=== PATIENT | male | born 1940 | race Caucasian/White ===

== ENCOUNTER 2017-11-07 11:51 | Day surgery (SDC) | payer MEDICARE, OTHER, SELFPAY ==
[2017-11-07] VITALS (16 sets, daily range): BP systolic 76–110; BP diastolic 45–65; PULSE 44–53; RESP 8–16; TEMP 36.1–36.3; O2SAT 95–100; BMI 23.4
--- NOTE | 2017-11-07 | PATH_ITS ---
[facility] Accession Number: [id number] . 01 Material submitted: . COLON POLYP AT 16 CM . 02 Diagnosis: Colon Polyp at 16 cm: Hyperplastic polyp. MRV/11/08/2017 . 02 Electronically signed: . Pedro Rubalcava MD, PhD, Pathologist NPI- [id number] . 01 Gross description: . Received one formalin-filled container labeled with the patient's name and labeled colon polyp at 16 cm. The specimen consists of three 0.2 to 0.4 cm portions of tissue. Entirely submitted in one cassette. ([facility] [place]:[id number]) /[facility] . 02 Pathologist provided ICD-10: K63.5 . 02 CPT . 964105 Performed at: [address] [facility] [address] [id number] MD Bora Perry MD Phone: [phone] Performed at: 02 [facility] [place] [address] [place], [place] [id number] MD Gilberto Savlador MD Phone: [phone]
--- NOTE | 2017-11-07 12:08 | PM.PREOP ---
Pre-operative Note Interval Note Pre-op Check: Yes History & Physical Reviewed by Physician and Yes Exam Performed Changes: No H&P completed within 30 days and has changed as indicated here:: Lungs clear CV reg Abdomen Soft Extrems WWP ASA Class (for procedural sedation): II
--- NOTE | 2017-11-07 12:09 | PM.OP.ENDO ---
Operative Date/Time/Diagnoses Date of procedure: 11/07/17 Time of procedure: 13:25 Pre-op diagnosis: History of Colon polyps Post-op diagnosis: other (Diminutive colon polyp at 15-16 cm from anal verge removed with cold forceps) Procedure Notes SCOAP/Timeout: yes Procedure in detail: After informed consent the patient was taken to the endoscopy suite he received Versed and fentanyl total of 6 mg of Versed a 200 mcg of fentanyl over the course of the entire procedure. After adequate sedation was achieved digital rectal exam showed no evidence of mass or lesion. Well lubricated endoscope was advanced to the terminal ileum which was confirmed by the ileocecal valve and necrosis foot of the cecum. Total sedation time was 32 min. Total withdrawal time was 12 min a diminutive polyp was seen at 16 cm and was removed with 2 bites of the cold forceps and sent to pathology retroflexion showed no evidence of rectal lesion. The prep was excellent with a 95% of the colon visualized. There were no evidence of complications and patient was brought to the postoperative care unit in stable condition tolerating the procedure quite well. Scope withdrawal time: 12 minutes Sedation minutes: 32 Findings: polyp Specimen(s): other (cold forceps polypectomy) Complications: none Recommendations: Colonscopy in 5 years Follow up: as needed Disposition: PACU
[2017-11-07] MEDS: SODIUM CHLORIDE 0.9% 1,000 ML 200 ML IV ×2 (12:29→13:59)
[2017-11-07] MEDS: GLUCAGON,HUMAN RECOMBINANT 1 MG/ML VIAL IV (13:03)
[2017-11-07] MEDS: MIDAZOLAM 5 MG/5 ML VIAL IV (13:24)
[2017-11-07] MEDS: fentaNYL 250 MCG/5 ML INJ IV (13:24)
--- NOTE | 2017-11-07 13:56 | SUR.PHASEI ---
Awake now. Pupils are 1mm b/l and the tendency to fall intoi a somnolent state occurs quickly.
--- NOTE | 2017-11-07 14:06 | SUR.PHASEI ---
Spoke with about delay in bringing out to the OPD.
--- NOTE | 2017-11-07 14:09 | SUR.PHASEI ---
Eye finally open spontaneously however still easily falls into somnolent state.
--- NOTE | 2017-11-07 14:11 | SUR.PHASEI ---
Although BP is low versus preop 110/65, with heart history and as most people often have slightly higher preprocedure BPs than usual, no longer have fluids open although still running. Patient unable to recall usual BP. Pupiuls now 2mm B/L.
--- NOTE | 2017-11-07 14:46 | SUR.PHASEII ---
Spoke with Dr Richter who asks that more IVF be administered and if patient still assymptomatic he can be discharged. Total IVF to this point 1350. Also has rec'd po fluids.
== END 2017-11-07 15:09 | disposition home or self-care (01) ==
PROVIDERS: PCP Family Medicine; Visit Provider Surgery
PROC: 0DJD8ZZ Inspection of Lower Intestinal Tract, Via Natural or Artificial Opening Endoscopic (ICD-10-PCS; CPT 45378; principal; 2017-11-07 13:00)
DX: Z86.010 Personal history of colon polyps (principal); Z87.891 Personal history of nicotine dependence; K63.5 Polyp of colon
CPT/HCPCS: 45380; 88305; 99152; 99153; J1610; J2250; J3010

== ENCOUNTER → 2020-07-04 08:39 | Outpatient (CLI) | payer MEDICARE, OTHER, SELFPAY ==
--- NOTE | 2020-07-04 09:02 | DI.CT.S_ITS ---
PROCEDURE: CT HEAD/BRAIN WO CON INDICATIONS: Other amnesia TECHNIQUE: Noncontrast 4.5 mm thick angled axial sections acquired from the foramen magnum to the vertex, with coronal and sagittal reformats. For radiation dose reduction, the following was used: automated exposure control, adjustment of mA and/or kV according to patient size. COMPARISON: None. FINDINGS: Image quality: Excellent. CSF spaces: Basal cisterns are patent. No extra-axial fluid collections. The ventricles are symmetric in size and shape. Brain: No intracranial bleeds or masses. There is cerebral volume loss for age, with resultant ventricular and sulcal prominence. There are periventricular and deep white matter chronic small vessel ischemic changes. There is intracranial internal carotid artery atherosclerosis. Skull and face: Calvarium and visualized facial bones appear intact, without suspicious lesions. Sinuses: Visualized sinuses and mastoids are clear. IMPRESSION: Study within normal limits for age, with note made of brain parenchymal volume loss and chronic small vessel ischemic change. Dictated by: Lino Benson M.D. on 07/04/2020 at 9:16 Approved by: Lino Benson M.D. on 07/04/2020 at 9:17
== END ==
PROVIDERS: PCP Family Medicine; Referring Provider Family Medicine; Visit Provider Family Medicine
DX: R41.3 Other amnesia (principal); R41.89 Other symptoms and signs involving cognitive functions and awareness
CPT/HCPCS: 70450

== ENCOUNTER 2020-11-29 17:06 | Emergency (ER) | payer MEDICARE, OTHER, SELFPAY ==
[2020-11-29] VITALS (7 sets, daily range): BP systolic 124–149; BP diastolic 64–83; PULSE 48–56; RESP 17–25; TEMP 36.9; O2SAT 96–98; BMI 24.0
--- NOTE | 2020-11-29 17:20 | DI.RAD.S_ITS ---
PROCEDURE: XR CHEST 1V INDICATIONS: Chest pain TECHNIQUE: One view of the chest was acquired. COMPARISON: None. FINDINGS: Surgical changes and devices: Left pacemaker with right ventricular AICD lead. Lungs and pleura: Prominent lung volumes. Suspect emphysematous change. Lungs appear clear. No pleural effusions or pneumothorax. Mediastinum: Mediastinal contours appear normal. Heart size is prominent. Bones and chest wall: No suspicious bony lesions. Overlying soft tissues appear unremarkable. IMPRESSION: No acute cardiopulmonary abnormality. Suspect emphysematous change. Dictated by: Sanchez Reagan M.D. on 11/29/2020 at 17:06 Approved by: Sanchez Reagan M.D. on 11/29/2020 at 17:07
--- NOTE | 2020-11-29 18:09 | ED.RECABL ---
HPI - Recheck/Abnormal Lab/Rx General Chief Complaint: Recheck/Abnormal Lab/Rx Stated Complaint: defib problem was not shocked. Time Seen by Provider: 11/29/20 17:19 Source: patient Mode of arrival: Ambulatory Limitations: no limitations History of Present Illness HPI narrative: Patient is a 80-year-old male with history of coronary artery disease presenting with defibrillator problem. [facility]. 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 He states early this morning there was a beeping noise from his defibrillator. He knew something was wrong and came to the emergency department this evening. He has already been interrogated, he has a [employer] device. My partner Dr. Hernandez spoke with [employer]. Stating he has a lead fracture. Could have inappropriate shocks recommend magnet over the battery and beclosely monitored. Patient is only here because he is annoyed with the beeping. He has not had any inappropriate shocks. He has no chest pain or shortness of breath. He has not had any fever. At this time completely asymptomatic Related Data Home Medications Medication Instructions Recorded Confirmed CA PANTOTHENATE/FOLIC ACID/VIT 1 tab PO QDAY #0 08/08/12 11/07/17 (MULTIVITAMIN) aspirin 81 mg tablet,delayed 81 mg PO QDAY #0 08/08/12 11/07/17 release cyclobenzaprine 10 mg tablet 10 mg PO HS #0 08/08/12 11/07/17 ezetimibe 10 mg tablet (Zetia) 10 mg PO QDAY #0 08/08/12 11/07/17 lisinopril 40 mg tablet (Zestril) 40 mg PO QDAY #0 08/08/12 11/07/17 metoprolol succinate 200 mg 200 mg PO QDAY #0 08/08/12 11/07/17 tablet,extended release 24 hr (Toprol XL) simvastatin 40 mg tablet 40 mg PO HS #0 08/08/12 11/07/17 Allergies Allergy/AdvReac Type Severity Reaction Status Date / Time No Known Drug Allergies Allergy Verified 11/07/17 12:10 Review of Systems Review of Systems Narrative: GENERAL: Denies chills, fatigue, malaise, fever, sweats, travel HEENT: Denies sinus pain, ear pain, sore throat, difficulty swallowing, neck pain RESPIRATORY: Denies dyspnea, cough, wheezing, hemoptysis, sputum. CARDIOVASCULAR: Denies chest pain, palpitations, orthopnea, edema GASTROINTESTINAL: Denies nausea, vomiting, abdominal pain, diarrhea, constipation, melena. : Denies dysuria, frequency, incontinence, hematuria, urinary retention, flank pain. MUSCULOSKELETAL: Denies weakness, joint pain, or bony pain SKIN: No rash, no erythema, no pruritus NEUROLOGIC: Denies weakness, dizziness, headache, numbness, change in speech, confusion PSYCHIATRIC: No concerning psychosocial issues. 12 point review of systems is negative except for those stated above and HPI Patient History Medical History (Updated 11/29/20 @ 20:16 by Swetha Potter DO) History of colonic polyps Social History household members: spouse Smoking Status: Current some day smoker Smoking Status: Current some day smoker tobacco type: cigarettes alcohol intake frequency: 0-2 drinks per day Substance Use Type: does not use Exam Initial Vital Signs Initial Vital Signs: Vital Signs Temperature 98.5 F 11/29/20 17:32 Pulse Rate 56 L 11/29/20 17:32 Respiratory Rate 18 11/29/20 17:32 Blood Pressure 149/69 H 11/29/20 17:32 Pulse Oximetry 96 11/29/20 17:32 GENERAL: Alert well-appearing 72-year-old maleand in no acute distress. HEENT: Head atraumatic,EOMI, pupils reactive, face symmetric, moist mucous membranes CARDIOVASCULAR: Regular rate and rhythm without murmurs, rubs or gallops. RESPIRATORY: Breath sounds equal bilaterally, no wheezes rales or rhonchi. ABDOMEN: Soft, nontender. Normoactive bowel sounds all 4 quadrants. No guarding or rebound. EXTREMITIES: Normal range of motion, no clubbing or edema. Neurovascularly intact NEUROLOGICAL: Alert and oriented x4.Normal gait and speech. SKIN: Warm, dry, no laceration, no petechiae, no rashes or lesions. Course Orders Ordered: ED Orders 11/29/20 18:11 Complete Blood Count AUTO DIFF Stat Comprehensive Metabolic Panel Stat Lipase Stat Magnesium Stat Troponin & CK Cardiac Panel Stat 11/29/20 18:21 XR chest 1V Stat Vital Signs Vital signs: Vital Signs - 8 hr 11/29/20 19:00 11/29/20 19:30 11/29/20 20:00 Pulse Rate 48 L 50 L 49 L Respiratory Rate 22 20 18 Blood Pressure 124/83 Pulse Oximetry 97 98 97 11/29/20 20:01 Pulse Rate 52 L Respiratory Rate 25 H Blood Pressure 140/64 Pulse Oximetry 97 MDM - Recheck/Abnormal Lab/Rx Lab Data Result diagrams: 11/29/20 18:11 11/29/20 18:11 Labs: Lab Results 11/29/20 11/29/20 Range/Units 18:11 18:11 WBC 7.4 (4.5-11.0) X10^3/uL RBC 4.47 L (4.5-5.9) X10^6/uL Hgb 14.7 (13.5-17.5) g/dL Hct 43.2 (41-53) % MCV 96.7 (80-100) fL MCH 33.0 (26-34) PG MCHC 34.1 (30-36) % RDW 13.4 (11.6-14.8) % Plt Count 184 (150-400) X10^3/uL Neut % (Auto) 60.3 (50-75) % Lymph % (Auto) 27.2 (25-40) % Amelia % (Auto) 9.5 (3-14) % Eos % (Auto) 1.8 L (2-4) % Baso % (Auto) 1.2 (0-2) % Neut # (Auto) 4500 (1492-6625) /uL Lymph # (Auto) 2000 (5361-3284) /uL Amelia # (Auto) 700 (0-900) /uL Eos # (Auto) 100 (0-450) /uL Baso # (Auto) 100 (0-100) /uL Sodium 131 L (137-145) mmol/L Potassium 4.3 (3.4-5.1) mmol/L Chloride 100 (98-107) mmol/L Carbon Dioxide 27 (22-32) mmol/L BUN 9 (9-20) mg/dL Creatinine 0.73 (0.66-1.25) mg/dL Estimated GFR > 60.0 (>60) mL/min BUN/Creatinine Ratio 12.3 (6-22) Glucose 81 (80-110) mg/dL Calcium 8.6 (8.4-10.2) mg/dL Magnesium 2.0 (1.6-2.3) mg/dL Total Bilirubin 0.5 (0.2-1.3) mg/dL AST 33 (17-59) IU/L ALT 13 (<50) IU/L Alkaline Phosphatase 53 (38-126) U/L Total Creatine Kinase 72 (55-170) U/L CK-MB (CK-2) TNP CK-MB (CK-2) Rel Index TNP Troponin I < 0.012 (0.01-0.034) ng/mL Total Protein 6.3 (6.3-8.2) g/dL Albumin 4.0 (3.5-5.0) g/dL Globulin 2.3 (1.7-4.1) g/dL Albumin/Globulin Ratio 1.7 (1.0-2.8) Lipase 156 (23-300) U/L MDM Narrative Medical decision making narrative: 730pm- Dr. Gonzales, at this time defibrillator was placed as prevention for nonischemic cardiomyopathy. He has an urgent but not emergent need to have a lead fracture fixed. States that his team will follow-up with him on Tuesday. Recommends talking to bilingual inside sales representative about stopping the beeping noise. He is at risk for inappropriate discharge of the defibrillator. There is no evidence of needing a generator change all or that it is reving up and not firing or discharging. Hans Medabhijeet bilingual inside sales representative is quite aware of the situation. He agrees to meet patient in the emergency department tomorrow after 10:00 a.m.. We are to contact him when the patient arrives and he will come here to turn off the beeping noise. He cannot and will not fix the lead fracture There is also significant bed shortage secondary to pandemic. Discharge Plan Departure Patient Disposition: Home Clinical Impression: Implanted defibrillator electrode lead fracture Qualifiers: Encounter type: initial encounter Qualified Code(s): T82.190A - Other mechanical complication of cardiac electrode, initial encounter Instructions: DI for Automatic Cardioverter/Defibrillator Implantation Activity Restrictions/Additional Instructions: You are at risk of being shocked Your defibrillator does need to be placed urgently but not emergently. I have spoken with Cardiology, they will be in touch with you 1st thing on Tuesday. RETURN TO EMERGENCY DEPARTMENT AROUND 10:00 A.M. SO THAT THE BEEPING NOISE CAN BE TURNED OFF. It will not be permanently fixed tomorrow, but the beeping will be stopped. If he should experience any shocking, chest pain, dizziness, palpitations return to emergency department immediately Follow-up with cardiology in every it next week. You should hear from them on Tuesday Prescriptions: No Action aspirin 81 MG tablet,delayed release (DR/EC) 81 mg PO QDAY Qty: 0 RF: 0 cyclobenzaprine 10 MG tablet 10 mg PO HS Qty: 0 RF: 0 lisinopril [Zestril] 40 MG tablet 40 mg PO QDAY Qty: 0 RF: 0 CA PANTOTHENATE/FOLIC ACID/VIT (MULTIVITAMIN) 1 tab PO QDAY Qty: 0 RF: 0 metoprolol succinate [Toprol XL] 200 MG tablet extended release 24 hr 200 mg PO QDAY Qty: 0 RF: 0 simvastatin 40 MG tablet 40 mg PO HS Qty: 0 RF: 0 ezetimibe [Zetia] 10 MG tablet 10 mg PO QDAY Qty: 0 RF: 0 Referrals: Mily Padilla DO [Primary Care Provider] -
--- NOTE | 2020-11-29 18:21 | DI.RAD.S_ITS ---
PROCEDURE: XR CHEST 1V INDICATIONS: ? lead fracture remove all leads. TECHNIQUE: One view of the chest was acquired. COMPARISON: [facility], CR, XR CHEST 1V, 11/29/2020, 17:27. FINDINGS: Surgical changes and devices: Cardiac AICD Lungs and pleura: Scattered subsegmental scarring and/or atelectasis. No acute consolidation. No pleural effusions or pneumothorax. Mediastinum: Mediastinal contours appear normal. Heart size is normal. Bones and chest wall: No suspicious bony lesions. Overlying soft tissues appear unremarkable. IMPRESSION: No acute disease. Dictated by: Rachid Marti M.D. on 11/29/2020 at 18:46 Approved by: Rachid Marti M.D. on 11/29/2020 at 18:47
--- NOTE | 2020-11-29 18:25 | PC.NURSE ---
Per [employer], this pt's device should be turned off to prevent malfunction and inappropriate shock due to fractured lead. Magnet placed on pacemaker. Pacer spikes no longer showing on monitor. This RN has heard the pacer alarm three times prior to being turned off. Pt remains PWD, NAD, no pain, SOB, or complaints.
[2020-11-29 18:33] LABS: Alanine Aminotransferase 13 IU/L (<50); Albumin Globulin Ratio 1.7 (1.0-2.8); Alkaline Phosphatase 53 U/L (38-126); Aspartate Aminotransferase 33 IU/L (17-59); BUN Creatinine Ratio 12.3 (6-22); Bilirubin Total 0.5 mg/dL (0.2-1.3); Blood Urea Nitrogen 9 mg/dL (9-20); Calcium 8.6 mg/dL (8.4-10.2); Carbon Dioxide 27 mmol/L (22-32); Chloride 100 mmol/L (98-107); Creatine Kinase 72 U/L (55-170); Estimated Glomerular Filt Rate > 60.0 mL/min (>60); Globulin 2.3 g/dL (1.7-4.1); Glucose 81 mg/dL (80-110); HEMOLYSIS 25 (0-50); Lipase 156 U/L (23-300); Potassium 4.3 mmol/L (3.4-5.1); Sodium 131 mmol/L (137-145); Total Protein 6.3 g/dL (6.3-8.2)
[2020-11-29 18:36] LABS: Add Manual Diff / Slide Review NO; Basophils Absolute Auto 100 /uL (0-100); Basophils Percent Auto 1.2 % (0-2); Eosinophils Absolute Auto 100 /uL (0-450); Eosinophils Percent Auto 1.8 % (2-4); Hematocrit 43.2 % (41-53); Hemoglobin 14.7 g/dL (13.5-17.5); Lymphocytes Absolute Auto 2000 /uL (1100-4500); Lymphocytes Percent Auto 27.2 % (25-40); Mean Corpuscular HGB Conc 34.1 % (30-36); Mean Corpuscular Volume 96.7 fL (80-100); Monocytes Absolute Auto 700 /uL (0-900); Monocytes Percent Auto 9.5 % (3-14); Neutrophils Absolute Auto 4500 /uL (1500-7000); Neutrophils Percent Auto 60.3 % (50-75); Platelet Count 184 X10^3/uL (150-400); Red Blood Cell Count 4.47 X10^6/uL (4.5-5.9); Red Cell Distribution Width 13.4 % (11.6-14.8); White Blood Cell Count 7.4 X10^3/uL (4.5-11.0)
[2020-11-29 18:43] LABS: Troponin I < 0.012 ng/mL (0.01-0.034)
== END 2020-11-29 20:33 | disposition home or self-care (01) ==
PROVIDERS: Emergency Medicine; Emergency Provider Emergency Medicine; PCP Family Medicine
DX: T82.190A Other mechanical complication of cardiac electrode, initial encounter (principal)
CPT/HCPCS: 36415; 71045; 80053; 82550; 83690; 83735; 84484; 85025; 93005; 99283; 99284

== ENCOUNTER 2020-11-30 09:32 | Emergency (ER) | payer MEDICARE, OTHER, SELFPAY ==
[2020-11-30 09:35] VITALS: BP 147/72; PULSE 55; RESP 16; TEMP 36.9; O2SAT 99
--- NOTE | 2020-11-30 09:45 | ED.RECABL ---
HPI - Recheck/Abnormal Lab/Rx General Chief Complaint: Recheck/Abnormal Lab/Rx Stated Complaint: Returning for Defib assistance Time Seen by Provider: 11/30/20 09:38 Source: patient Mode of arrival: Ambulatory Limitations: no limitations History of Present Illness HPI narrative: Patient is a 80-year-old male. Was here in the emergency department yesterday after his defibrillator was beeping. It was determined that he did have a fractured wire which was causing the issue. He was otherwise asymptomatic. The night provider last evening was able to talk with the device rep and also the patient's greenskeeper supervisor. Was determined that the patient could be discharged home and will follow-up as an outpatient. It was determined that the patient would return to the emergency department today an order for the device rep to come to the emergency department in order to change the modality of the device that the beeping will stop. Since his discharge from the hospital the patient has had no symptoms except for the beeping of the device. Related Data Home Medications Medication Instructions Recorded Confirmed CA PANTOTHENATE/FOLIC ACID/VIT 1 tab PO QDAY #0 08/08/12 11/07/17 (MULTIVITAMIN) aspirin 81 mg tablet,delayed 81 mg PO QDAY #0 08/08/12 11/07/17 release cyclobenzaprine 10 mg tablet 10 mg PO HS #0 08/08/12 11/07/17 ezetimibe 10 mg tablet (Zetia) 10 mg PO QDAY #0 08/08/12 11/07/17 lisinopril 40 mg tablet (Zestril) 40 mg PO QDAY #0 08/08/12 11/07/17 metoprolol succinate 200 mg 200 mg PO QDAY #0 08/08/12 11/07/17 tablet,extended release 24 hr (Toprol XL) simvastatin 40 mg tablet 40 mg PO HS #0 08/08/12 11/07/17 Allergies Allergy/AdvReac Type Severity Reaction Status Date / Time No Known Drug Allergies Allergy Verified 11/30/20 09:43 Review of Systems Cardiovascular Comments: Denies chest pain, denies any inappropriate shocks Respiratory Comments: No shortness of breath Hematologic/Lymphatic On Anticoagulants: No Patient History Medical History (Updated 11/30/20 @ 12:11 by Cody Hernandez DO) History of colonic polyps Social History household members: spouse Smoking Status: Current some day smoker Smoking Status: Current some day smoker tobacco type: cigarettes alcohol intake frequency: 0-2 drinks per day Substance Use Type: does not use Exam Initial Vital Signs Initial Vital Signs: Vital Signs Temperature 98.4 F 11/30/20 09:35 Pulse Rate 55 L 11/30/20 09:35 Respiratory Rate 16 11/30/20 09:35 Blood Pressure 147/72 H 11/30/20 09:35 Pulse Oximetry 99 11/30/20 09:35 Const General: cooperative HENMT Head: normal to inspection and normocephalic Eyes General: appearance normal, both eyes and all related structures Resp Effort & Inspection: normal respiratory effort Cardio Rate: bradycardic Rhythm: abnormal rhythm Skin General: no rashes or lesions noted Neuro General: patient alert, patient awake and moves all extremities Extrem General: normal to inspection and capillary refill normal Psych Appearance: grossly normal and well kempt Course Vital Signs Vital signs: Vital Signs - 8 hr 11/30/20 09:35 11/30/20 11:23 Temperature 98.4 F Pulse Rate 55 L 51 L Respiratory Rate 16 51 H Blood Pressure 147/72 H 120/62 Pulse Oximetry 99 97 MDM - Recheck/Abnormal Lab/Rx MDM Narrative Medical decision making narrative: Patient is currently not having any symptoms except hearing his device beeping. The [employer] rep came into the emergency department unchanged the device setting so that it would no longer be. He was instructed to decrease his activity today as the chances of an inappropriate shock are potentially high given the nature of the issue with his device. His civil engineering intern was informed of the issue last evening and will follow-up with the patient sometime this week. Patient was given return precautions. Discharge Plan Departure Patient Disposition: Home Clinical Impression: Implantable cardioverter-defibrillator lead failure Activity Restrictions/Additional Instructions: Your device was adjusted today so that it should stop beeping. It is important that tomorrow you contact your civil engineering intern as you will need to get in to see him/her this week to have this issue fixed. There is a potential that you can receive an inappropriate shock based on the nature of the issue that you are having with the device. If this happens please return to the emergency department. Is recommended that you decrease your activity today. Return to the emergency department for any new or worsening symptoms Prescriptions: No Action aspirin 81 MG tablet,delayed release (DR/EC) 81 mg PO QDAY Qty: 0 RF: 0 cyclobenzaprine 10 MG tablet 10 mg PO HS Qty: 0 RF: 0 lisinopril [Zestril] 40 MG tablet 40 mg PO QDAY Qty: 0 RF: 0 CA PANTOTHENATE/FOLIC ACID/VIT (MULTIVITAMIN) 1 tab PO QDAY Qty: 0 RF: 0 metoprolol succinate [Toprol XL] 200 MG tablet extended release 24 hr 200 mg PO QDAY Qty: 0 RF: 0 simvastatin 40 MG tablet 40 mg PO HS Qty: 0 RF: 0 ezetimibe [Zetia] 10 MG tablet 10 mg PO QDAY Qty: 0 RF: 0 Referrals: Mily Padilla DO [Primary Care Provider] -
[2020-11-30 11:23] VITALS: BP 120/62; PULSE 51; RESP 51; O2SAT 97
== END 2020-11-30 12:18 | disposition home or self-care (01) ==
PROVIDERS: Emergency Provider Emergency Medicine; PCP Family Medicine
DX: T82.110A Breakdown (mechanical) of cardiac electrode, initial encounter (principal)
CPT/HCPCS: 99281

== ENCOUNTER → 2021-05-22 10:33 | Outpatient (CLI) | payer MEDICARE, OTHER, SELFPAY ==
[2021-05-22 12:05] LABS: BUN Creatinine Ratio 14.1 (6-22); Blood Urea Nitrogen 12 mg/dL (9-20); Calcium 8.7 mg/dL (8.4-10.2); Carbon Dioxide 30 mmol/L (22-32); Chloride 103 mmol/L (98-107); Estimated Glomerular Filt Rate > 60.0 mL/min (>60); Glucose 104 mg/dL (80-110); HEMOLYSIS 24 (0-50); Potassium 4.3 mmol/L (3.4-5.1); Sodium 139 mmol/L (137-145)
== END ==
PROVIDERS: PCP Family Medicine; Referring Provider Family Medicine; Visit Provider Family Medicine
DX: R19.7 Diarrhea, unspecified (principal)
CPT/HCPCS: 36415; 80048

== ENCOUNTER → 2021-05-28 09:00 | Outpatient (CLI) | payer MEDICARE, OTHER, SELFPAY ==
--- NOTE | 2021-05-28 | DI.CT.S_ITS ---
PROCEDURE: CT CHEST ABD PEL W CON INDICATIONS: loss of weight/chronic cough TECHNIQUE: After the administration of oral and intravenous contrast, axial sections acquired from the supraclavicular neck to the pubic symphysis. Coronal and sagittal reformats were performed. For radiation dose reduction, the following was used: automated exposure control, adjustment of mA and/or kV according to patient size. COMPARISON: None. FINDINGS: Image quality: Excellent. CHEST: Lower Neck: No enlarged lymph nodes. Thyroid: Within normal limits. Axillae: No enlarged lymph nodes. Chest Wall: Left-sided cardiac pacemaker is noted. Lungs and Airways: Severe centrilobular emphysema and paraseptal emphysema is present bilaterally with an apical predominance. No acute airspace opacities. No pulmonary nodules. No pleural effusion or pneumothorax. Pleura: No pneumothorax or pleural effusions. Heart: Heart size is normal. No pericardial effusion. Thoracic Vessels: The aorta and pulmonary arteries demonstrate normal size. Scattered atheromatous calcifications are present within the aortic arch. Mediastinum and Bernice: No enlarged lymph nodes. Esophagus: No wall thickening. No hiatal hernia. ABDOMEN: Liver: Low-density cysts are present within the liver. Gallbladder: Unremarkable. Biliary ducts: Unremarkable. Pancreas: Unremarkable. Spleen: Unremarkable. Adrenal Glands: Unremarkable. Kidneys and Ureters: There is mild atrophy of the right kidney. A left subcortical cystic lesion is present. Stomach and Bowel: Stomach, small bowel loops, and colon are unremarkable. Peritoneum: No abnormal intraperitoneal fluid. No free air. Ventral Wall: No hernia. Abdominal Nodes: No retroperitoneal or mesenteric adenopathy by size criteria. Vessels: There are scattered atheromatous calcifications throughout the aorta and iliac arteries bilaterally. Patient is status post aortic endovascular repair. At the confluence of the IVC there is a lobulated 4.6 x 3.6 cm mass. It is unclear whether this is within the IVC or adjacent to the IVC and compresses the IVC given the lack of IVC enhancement. No other suspicious retroperitoneal masses. No other vascular abnormalities. PELVIS: Pelvic Organs: Unremarkable. Bladder: Unremarkable. Pelvic Nodes: No enlarged lymph nodes. Miscellaneous: No inguinal hernias are seen. Bones: Unremarkable. IMPRESSION: 1. Severe centrilobular and paraseptal emphysema. 2. Lobulated soft tissue mass either within or adjacent to the inferior IVC. Further characterization may be possible with abdominal ultrasound given the patient's small body habitus. Alternatively, MRI of this region with and without contrast may be helpful to further differentiate a soft tissue mass from the inferior vena cava. Differential considerations include retroperitoneal irvin mass or other neoplastic process. Dictated by: Katie Agustin M.D. on 05/28/2021 at 11:28 Approved by: Katie Agustin M.D. on 05/28/2021 at 11:52
== END ==
PROVIDERS: PCP Family Medicine; Referring Provider Family Medicine; Visit Provider Family Medicine
DX: J43.2 Centrilobular emphysema (principal); R19.09 Other intra-abdominal and pelvic swelling, mass and lump; R63.4 Abnormal weight loss; R05.3 Chronic cough; R19.5 Other fecal abnormalities; R19.7 Diarrhea, unspecified
CPT/HCPCS: 71260; 74177; Q9967

== ENCOUNTER → 2021-08-07 07:41 | Outpatient (CLI) | payer MEDICARE, OTHER, SELFPAY ==
[2021-08-07 08:39] LABS: COVID19 -Nasal RAPID Negative (Negative)
== END ==
PROVIDERS: PCP Family Medicine; Referring Provider Internal Medicine; Visit Provider Internal Medicine
DX: Z20.822 Contact with and (suspected) exposure to COVID-19 (principal)
CPT/HCPCS: 87635; C9803

== ENCOUNTER → 2021-08-07 07:43 | Outpatient (CLI) | payer MEDICARE, OTHER, SELFPAY ==
--- NOTE | 2021-08-23 13:22 | PM.PFT.1 ---
Pulmonary Function Test Referral & Results Date Patient Seen: 08/07/21 Requesting provider: Mily Padilla Results: The spirometry demonstrates an FVC of 4.23 L which is 99% of predicted. The FEV1 was measured at 1.28 L which is 42% of predicted. The FEV1/FVC ratio was 30 which is 41% of predicted. Following the administration of bronchodilator there was no notable change Lung volumes show an SVC of 2.96 L which is 64% of predicted. The diffusing capacity was measured at 18.08 which is 53% of predicted. No hemoglobin value was provided, so no correction for potential anemia could be made, if appropriate. The maximum voluntary ventilation was reduced Interpretation: This study demonstrates moderate to moderately severe obstructive lung disease based on reduction FEV1 and FEV1/FVC ratio. There is no evidence of notable benefit following bronchodilator There is also mild reduction in lung volumes suggesting mild restrictive lung disease is also present There is a moderate reduction diffusing capacity suggesting disease at the capillary alveolar level
== END ==
PROVIDERS: PCP Family Medicine; Referring Provider Family Medicine; Visit Provider Family Medicine
DX: J44.9 Chronic obstructive pulmonary disease, unspecified (principal); Z87.891 Personal history of nicotine dependence; Z20.822 Contact with and (suspected) exposure to COVID-19
CPT/HCPCS: 87635; 94060; 94726; 94729; C9803

== ENCOUNTER 2022-01-13 08:41 | Emergency (ER) | payer MEDICARE, OTHER, SELFPAY ==
[2022-01-13] VITALS (7 sets, daily range): BP systolic 129–135; BP diastolic 65–99; PULSE 50–54; RESP 14–21; TEMP 36.7; O2SAT 95–98
--- NOTE | 2022-01-13 09:01 | DI.RAD.S_ITS ---
PROCEDURE: XR CHEST 1V INDICATIONS: suspected sepsis TECHNIQUE: One view of the chest was acquired. COMPARISON: [facility], CR, XR CHEST 1V, 11/29/2020, 18:27. FINDINGS: Surgical changes and devices: Pacemaker Lungs and pleura: Lungs are clear. No pleural effusions or pneumothorax. Mediastinum: Mediastinal contours appear normal. Heart size is normal. Bones and chest wall: No suspicious bony lesions. Overlying soft tissues appear unremarkable. IMPRESSION: No evidence acute pulmonary process. Dictated by: Sg Londono M.D. on 01/13/2022 at 9:29 Approved by: Sg Londono M.D. on 01/13/2022 at 9:29
[2022-01-13] MEDS: SODIUM CHLORIDE 0.9% 1,000 ML 1000 ML IV (09:07)
[2022-01-13 09:14] LABS: Add Manual Diff / Slide Review NO; Basophils Absolute Auto 100 /uL (0-100); Basophils Percent Auto 0.9 % (0-2); Eosinophils Absolute Auto 200 /uL (0-450); Eosinophils Percent Auto 2.7 % (2-4); Hematocrit 43.4 % (41-53); Hemoglobin 14.9 g/dL (13.5-17.5); Lymphocytes Absolute Auto 2000 /uL (1100-4500); Lymphocytes Percent Auto 30.1 % (25-40); Mean Corpuscular HGB Conc 34.4 % (30-36); Mean Corpuscular Hemoglobin 32.9 PG (26-34); Mean Corpuscular Volume 95.6 fL (80-100); Monocytes Absolute Auto 600 /uL (0-900); Monocytes Percent Auto 8.9 % (3-14); Neutrophils Absolute Auto 3800 /uL (1500-7000); Neutrophils Percent Auto 57.4 % (50-75); Platelet Count 162 X10^3/uL (150-400); Red Blood Cell Count 4.54 X10^6/uL (4.5-5.9); Red Cell Distribution Width 14.3 % (11.6-14.8); White Blood Cell Count 6.5 X10^3/uL (4.5-11.0)
[2022-01-13 09:18] LABS: Alanine Aminotransferase 26 IU/L (<50); Albumin 3.8 g/dL (3.5-5.0); Albumin Globulin Ratio 1.5 (1.0-2.8); Alkaline Phosphatase 50 U/L (38-126); Aspartate Aminotransferase 37 IU/L (17-59); BUN Creatinine Ratio 15.7 (6-22); Bilirubin Total 0.4 mg/dL (0.2-1.3); Blood Urea Nitrogen 13 mg/dL (9-20); Calcium 8.4 mg/dL (8.4-10.2); Carbon Dioxide 30 mmol/L (22-32); Chloride 99 mmol/L (98-107); Estimated Glomerular Filt Rate > 60 mL/min (>60); Globulin 2.6 g/dL (1.7-4.1); Glucose 120 mg/dL (80-110); HEMOLYSIS 17 (0-50); Lactate (Lactic Acid) 1.7 mmol/L (0.7-2.1); Lipase 65 U/L (23-300); Potassium 3.9 mmol/L (3.4-5.1); Sodium 138 mmol/L (137-145); Total Protein 6.4 g/dL (6.3-8.2)
--- NOTE | 2022-01-13 09:20 | ED.RECABL ---
HPI - Recheck/Abnormal Lab/Rx General Chief Complaint: Recheck/Abnormal Lab/Rx Stated Complaint: follow up from cardiac rest/stroke Tuesday Time Seen by Provider: 01/13/22 08:53 Source: patient and family Mode of arrival: Ambulatory History of Present Illness HPI narrative: Patient is a 81-year-old male history of ICD, history of abdominal aortic aneurysm presenting today with follow-up for positive blood culture. He was seen and evaluated at [facility] on 01/10/2022 for some dizziness and weakness. At that time he reported dizziness when standing and had upper respiratory infection a few weeks prior. His blood cultures and workup in the ED did not show any associated infection or reason for admission. Patient says that he has not had any complaints. He had they are only here because they were called and told to go to an emergency department for positive blood culture. Records have been received and reviewed from [facility]. Related Data Home Medications Medication Instructions Recorded Confirmed CA PANTOTHENATE/FOLIC ACID/VIT 1 tab PO QDAY ##0 08/08/12 11/07/17 (MULTIVITAMIN) aspirin 81 mg tablet,delayed 81 mg PO QDAY ##0 08/08/12 11/07/17 release cyclobenzaprine 10 mg tablet 10 mg PO HS ##0 08/08/12 11/07/17 ezetimibe 10 mg tablet (Zetia) 10 mg PO QDAY ##0 08/08/12 11/07/17 lisinopril 40 mg tablet (Zestril) 40 mg PO QDAY ##0 08/08/12 11/07/17 metoprolol succinate 200 mg 200 mg PO QDAY ##0 08/08/12 11/07/17 tablet,extended release 24 hr (Toprol XL) simvastatin 40 mg tablet 40 mg PO HS ##0 08/08/12 11/07/17 Allergies Allergy/AdvReac Type Severity Reaction Status Date / Time No Known Drug Allergies Allergy Verified 11/30/20 09:43 Review of Systems Review of Systems Narrative: GENERAL: Denies chills, fatigue, malaise, fever, sweats, travel HEENT: Denies sinus pain, ear pain, sore throat, difficulty swallowing, neck pain RESPIRATORY: Denies dyspnea, cough, wheezing, hemoptysis, sputum. CARDIOVASCULAR: Denies chest pain, palpitations, orthopnea, edema GASTROINTESTINAL: Denies nausea, vomiting, abdominal pain, diarrhea, constipation, melena. : Denies dysuria, frequency, incontinence, hematuria, urinary retention, flank pain. MUSCULOSKELETAL: Denies weakness, joint pain, or bony pain SKIN: No rash, no erythema, no pruritus NEUROLOGIC: Denies weakness, dizziness, headache, numbness, change in speech, confusion PSYCHIATRIC: No concerning psychosocial issues. 12 point review of systems is negative except for those stated above and HPI Patient History Medical History (Updated 01/13/22 @ 11:29 by Sewtha Potter DO) History of colonic polyps Social History household members: spouse Smoking Status: Current some day smoker Smoking Status: Current some day smoker tobacco type: cigarettes alcohol intake frequency: 0-2 drinks per day Substance Use Type: does not use Exam Initial Vital Signs Initial Vital Signs: Vital Signs Blood Pressure 135/66 01/13/22 08:46 GENERAL: A pleasant alert 81-year-old male and in no acute distress. HEENT: Head atraumatic,EOMI, pupils reactive, face symmetric, moist mucous membranes CARDIOVASCULAR: Regular rate and rhythm without murmurs, rubs or gallops. RESPIRATORY: Breath sounds equal bilaterally, no wheezes rales or rhonchi. ABDOMEN: Soft, nontender. Normoactive bowel sounds all 4 quadrants. No guarding or rebound. EXTREMITIES: Normal range of motion, no clubbing or edema. Neurovascularly intact NEUROLOGICAL: Alert and oriented x4.Normal gait and speech. Child Welfare Assistant strength equal bilaterally SKIN: Warm, dry, no laceration, no petechiae, no rashes or lesions. Course Orders Ordered: ED Orders 01/13/22 08:52 Complete Blood Count AUTO DIFF Stat Comprehensive Metabolic Panel Stat Lactate (Lactic Acid) Stat Lipase Stat Procalcitonin Stat 01/13/22 08:58 Blood Culture Stat 01/13/22 09:01 XR chest 1V Stat RT Consult Eval and Treat NOW 01/13/22 09:36 EKG-12 Lead Stat Discontinued Medications Sodium Chloride (Normal Saline 0.9%) 1,000 mls @ 1,000 mls/hr IV BOLUS ONE Stop: 01/13/22 10:00 Last Infusion: 01/13/22 11:18 Dose: 0 mls/hr Documented By: Admin: 10/26/22 09:07 Dose: 1,000 mls/hr Documented By: REI Vital Signs Vital signs: Vital Signs - 8 hr 01/13/22 09:20 01/13/22 09:20 01/13/22 09:30 Pulse Rate 50 L 50 L Respiratory Rate 21 14 Blood Pressure 134/65 Pulse Oximetry 98 97 01/13/22 09:41 01/13/22 09:41 Pulse Rate 54 L Respiratory Rate 21 Blood Pressure 129/99 H Pulse Oximetry 97 MDM - Recheck/Abnormal Lab/Rx Lab Data Result diagrams: 01/13/22 08:52 01/13/22 08:52 Labs: Lab Results 01/13/22 01/13/22 01/13/22 Range/Units 08:52 08:52 08:52 WBC 6.5 (4.5-11.0) X10^3/uL RBC 4.54 (4.5-5.9) X10^6/uL Hgb 14.9 (13.5-17.5) g/dL Hct 43.4 (41-53) % MCV 95.6 (80-100) fL MCH 32.9 (26-34) PG MCHC 34.4 (30-36) % RDW 14.3 (11.6-14.8) % Plt Count 162 (150-400) X10^3/uL Neut % (Auto) 57.4 (50-75) % Lymph % (Auto) 30.1 (25-40) % [place] % (Auto) 8.9 (3-14) % Eos % (Auto) 2.7 (2-4) % Baso % (Auto) 0.9 (0-2) % Neut # (Auto) 3800 (4824-0211) /uL Lymph # (Auto) 2000 (5408-1240) /uL [place] # (Auto) 600 (0-900) /uL Eos # (Auto) 200 (0-450) /uL Baso # (Auto) 100 (0-100) /uL Sodium 138 (137-145) mmol/L Potassium 3.9 (3.4-5.1) mmol/L Chloride 99 (98-107) mmol/L Carbon Dioxide 30 (22-32) mmol/L BUN 13 (9-20) mg/dL Creatinine 0.83 (0.66-1.25) mg/dL Estimated GFR > 60 (>60) mL/min BUN/Creatinine Ratio 15.7 (6-22) Glucose 120 H (80-110) mg/dL Lactate 1.7 (0.7-2.1) mmol/L Calcium 8.4 (8.4-10.2) mg/dL Total Bilirubin 0.4 (0.2-1.3) mg/dL AST 37 (17-59) IU/L ALT 26 (<50) IU/L Alkaline Phosphatase 50 (38-126) U/L Total Protein 6.4 (6.3-8.2) g/dL Albumin 3.8 (3.5-5.0) g/dL Globulin 2.6 (1.7-4.1) g/dL Albumin/Globulin Ratio 1.5 (1.0-2.8) Lipase 65 (23-300) U/L Procalcitonin < 0.03 (<0.5) ng/mL Imaging Data Chest x-ray: Radiologist's Impression: ent: DelfinoDalton Pat MR#: [id number] : 1940 Acct:[id number] Age/Sex: 81 / M Date of Service: 01/13/22 Loc: ED Accession Number: [id number] ?? Procedure: XR chest 1V Ordering Provider: Swetha Potter D.O. PROCEDURE:? XR CHEST 1V ? INDICATIONS:? suspected sepsis ? TECHNIQUE:? One view of the chest was acquired.? ? COMPARISON:? [facility], , XR CHEST 1V, 11/29/2020, 18:27. ? FINDINGS:? ? Surgical changes and devices:? Pacemaker ? Lungs and pleura:? Lungs are clear.? No pleural effusions or pneumothorax.? ? Mediastinum:? Mediastinal contours appear normal.? Heart size is normal.? ? Bones and chest wall:? No suspicious bony lesions.? Overlying soft tissues appear unremarkable.? ? IMPRESSION:? No evidence acute pulmonary process. ? ? ? Dictated by: Sg Londono M.D. on 01/13/2022 at 9:29 ? ? ECG Data Interpretation: Sinus rhythm with PVCs rate 61 PA interval 156 QRS [address] changes or T-wave inversions, right bundle-branch block noted similar to previous EKG he actually does have ST elevations with Q-waves in anteroseptal leads similar to previous EKG in 2020. MDM Narrative Medical decision making narrative: Records have been received and reviewed from [facility]. Positive blood culture for Staph coccus hominis thought to be a contaminant. Blood work today is overall reassuring he does not appear septic no leukocytosis elevated prolactin or lactic acid. He has no reports of infection such as fever. Overall appears well. He has repeat blood blood cultures pending however I do agree this is probably a contaminant. I have discussed this with patient and as well. He has no chest pain he has negative troponin and no EKG changes. Discharge Plan Departure Patient Disposition: Home Clinical Impression: Weakness Instructions: DI for Muscle Weakness Activity Restrictions/Additional Instructions: *You have been diagnosed with weakness *What to do: Blood work today is overall reassuring. I have reviewed her records at this time no need for antibiotics. You have repeat blood cultures pending if those are positive then we will call you in you will need antibiotics. However based on your lab results today and from Tuesday I do not think this will happen *Continue to take medications as directed *Follow up with your primary care provider in 2-3 days or call [phone] *Return to ER if you should have increased weakness dizziness or falls or any new, worsening or concerning symptoms Prescriptions: No Action aspirin 81 MG tablet,delayed release (DR/EC) 81 mg PO QDAY Qty: 0 cyclobenzaprine 10 MG tablet 10 mg PO HS Qty: 0 lisinopril [Zestril] 40 MG tablet 40 mg PO QDAY Qty: 0 CA PANTOTHENATE/FOLIC ACID/VIT (MULTIVITAMIN) 1 tab PO QDAY Qty: 0 metoprolol succinate [Toprol XL] 200 MG tablet extended release 24 hr 200 mg PO QDAY Qty: 0 simvastatin 40 MG tablet 40 mg PO HS Qty: 0 ezetimibe [Zetia] 10 MG tablet 10 mg PO QDAY Qty: 0 Referrals: Mily Padilla DO [Primary Care Provider] - Visit Report Forms: Patient Portal/API
[2022-01-13 09:34] LABS: Procalcitonin < 0.03 ng/mL (<0.5)
[2022-01-14 09:54] LABS: Enterococcus species Not Detected (Not Detect); Listeria monocytogenes Not Detected (Not Detect); Methicillin-resistant gene Not Detected (Not Detect); Staphylococcus species Detected (Not Detect)
[2022-01-14 09:55] LABS: Acinetobacter baumannii Not Detected (Not Detect); Candida albicans Not Detected (Not Detect); Candida glabrata Not Detected (Not Detect); Candida krusei Not Detected (Not Detect); Candida parapsilosis Not Detected (Not Detect); Candida tropicalis Not Detected (Not Detect); E. coli Not Detected (Not Detect); Enterobacter cloacae complex Not Detected (Not Detect); Enterobacteriaceae species Not Detected (Not Detect); Haemophilus influenzae Not Detected (Not Detect); Neisseria meningitidis Not Detected (Not Detect); Proteus species Not Detected (Not Detect); Pseudomonas aeruginosa Not Detected (Not Detect); Serratia marcescens Not Detected (Not Detect); Streptococcus agalactiae (Gr B Not Detected (Not Detect); Streptococcus pneumonia Not Detected (Not Detect); Streptococcus pyogenes (Gr A) Not Detected (Not Detect); Streptococcus species Not Detected (Not Detect)
== END 2022-01-13 11:30 | disposition home or self-care (01) ==
PROVIDERS: Emergency Provider Emergency Medicine; PCP Family Medicine
DX: M62.81 Muscle weakness (generalized) (principal); I25.2 Old myocardial infarction
CPT/HCPCS: 36415; 71045; 80053; 83605; 83690; 84145; 85025; 87040; 87077; 87150; 87186; 87205; 93005; 99284

== ENCOUNTER 2022-01-15 09:04 | Emergency (ER) | payer MEDICARE, OTHER, SELFPAY ==
[2022-01-15 09:27] VITALS: BP 146/70; RESP 14; O2SAT 99
[2022-01-15 10:37] LABS: Lactate (Lactic Acid) 0.9 mmol/L (0.7-2.1)
[2022-01-15 10:42] LABS: Add Manual Diff / Slide Review NO; Basophils Absolute Auto 100 /uL (0-100); Basophils Percent Auto 0.8 % (0-2); Eosinophils Absolute Auto 100 /uL (0-450); Eosinophils Percent Auto 1.9 % (2-4); Hematocrit 42.9 % (41-53); Hemoglobin 14.8 g/dL (13.5-17.5); Lymphocytes Absolute Auto 1500 /uL (1100-4500); Lymphocytes Percent Auto 20.2 % (25-40); Mean Corpuscular HGB Conc 34.5 % (30-36); Mean Corpuscular Volume 95.7 fL (80-100); Monocytes Absolute Auto 600 /uL (0-900); Monocytes Percent Auto 7.5 % (3-14); Neutrophils Absolute Auto 5300 /uL (1500-7000); Neutrophils Percent Auto 69.6 % (50-75); Platelet Count 169 X10^3/uL (150-400); Red Blood Cell Count 4.48 X10^6/uL (4.5-5.9); Red Cell Distribution Width 13.9 % (11.6-14.8); White Blood Cell Count 7.6 X10^3/uL (4.5-11.0)
[2022-01-15 10:44] LABS: Alanine Aminotransferase 30 IU/L (<50); Albumin 3.9 g/dL (3.5-5.0); Albumin Globulin Ratio 1.4 (1.0-2.8); Alkaline Phosphatase 56 U/L (38-126); Aspartate Aminotransferase 39 IU/L (17-59); BUN Creatinine Ratio 15.9 (6-22); Bilirubin Total 0.4 mg/dL (0.2-1.3); Blood Urea Nitrogen 13 mg/dL (9-20); Calcium 8.9 mg/dL (8.4-10.2); Carbon Dioxide 30 mmol/L (22-32); Chloride 100 mmol/L (98-107); Estimated Glomerular Filt Rate > 60 mL/min (>60); Globulin 2.7 g/dL (1.7-4.1); Glucose 91 mg/dL (80-110); HEMOLYSIS 18 (0-50); Potassium 4.3 mmol/L (3.4-5.1); Sodium 136 mmol/L (137-145); Total Protein 6.6 g/dL (6.3-8.2)
--- NOTE | 2022-01-15 11:07 | ED_ITS ---
HPI - Recheck/Abnormal Lab/Rx General Chief Complaint: Recheck/Abnormal Lab/Rx Stated Complaint: sent over by doctor Time Seen by Provider: 01/15/22 09:24 Source: patient and family Mode of arrival: Ambulatory History of Present Illness HPI narrative: Patient 81-year-old male history of abdominal aortic aneurysm, deaf fibrillator recent positive blood culture. He was seen evaluated at [facility] on January 10 found to have positive blood culture he had no symptoms. He was discharged I saw him on 01/13/2022 for the positive blood culture. At that time he was re-evaluated again no source or sign of infection he was again released however again a positive blood culture. He continues to have no symptoms. No fever or chills or night sweats. He is generally weak but no focal deficits. He has no chest pain shortness of breath nausea vomiting or abdominal pain. He has had a chronic cough for the last 2 years which has not worsened. X-ray from January 10 showed questionable pneumothorax and then there were was no pneumothorax. X-ray from 2 days ago did not show any abnormality. Related Data Home Medications Medication Instructions Recorded Confirmed CA PANTOTHENATE/FOLIC ACID/VIT 1 tab PO QDAY ##0 08/08/12 11/07/17 (MULTIVITAMIN) aspirin 81 mg tablet,delayed 81 mg PO QDAY ##0 08/08/12 11/07/17 release cyclobenzaprine 10 mg tablet 10 mg PO HS ##0 08/08/12 11/07/17 ezetimibe 10 mg tablet (Zetia) 10 mg PO QDAY ##0 08/08/12 11/07/17 lisinopril 40 mg tablet (Zestril) 40 mg PO QDAY ##0 08/08/12 11/07/17 metoprolol succinate 200 mg 200 mg PO QDAY ##0 08/08/12 11/07/17 tablet,extended release 24 hr (Toprol XL) simvastatin 40 mg tablet 40 mg PO HS ##0 08/08/12 11/07/17 Previous Rx's Medication Instructions Recorded cephalexin 500 mg capsule 500 mg PO BID 7 days #14 caps 01/15/22 Allergies Allergy/AdvReac Type Severity Reaction Status Date / Time No Known Drug Allergies Allergy Verified 11/30/20 09:43 Review of Systems Review of Systems Narrative: GENERAL: Denies chills, fatigue, malaise, fever, sweats, travel HEENT: Denies sinus pain, ear pain, sore throat, difficulty swallowing, neck pain RESPIRATORY: Denies dyspnea, cough, wheezing, hemoptysis, sputum. CARDIOVASCULAR: Denies chest pain, palpitations, orthopnea, edema GASTROINTESTINAL: Denies nausea, vomiting, abdominal pain, diarrhea, constipation, melena. : Denies dysuria, frequency, incontinence, hematuria, urinary retention, flank pain. MUSCULOSKELETAL: Denies weakness, joint pain, or bony pain SKIN: No rash, no erythema, no pruritus NEUROLOGIC: Denies weakness, dizziness, headache, numbness, change in speech, confusion PSYCHIATRIC: No concerning psychosocial issues. 12 point review of systems is negative except for those stated above and HPI Patient History Medical History (Updated 01/15/22 @ 12:09 by Swetha Potter DO) History of colonic polyps Social History household members: spouse Smoking Status: Current some day smoker Smoking Status: Current some day smoker tobacco type: cigarettes alcohol intake frequency: 0-2 drinks per day Substance Use Type: does not use Exam Initial Vital Signs Initial Vital Signs: Vital Signs Respiratory Rate 14 01/15/22 09:27 Blood Pressure 146/70 H 01/15/22 09:27 Pulse Oximetry 99 01/15/22 09:27 Oxygen Delivery Method 01/15/22 09:27 GENERAL: Alert pleasant 81-year-old male and in no acute distress. HEENT: Head atraumatic,EOMI, pupils reactive, face symmetric, moist mucous membranes CARDIOVASCULAR: Regular rate and rhythm without murmurs, rubs or gallops. RESPIRATORY: Breath sounds equal bilaterally, no wheezes rales or rhonchi. ABDOMEN: Soft, nontender. Normoactive bowel sounds all 4 quadrants. No guarding or rebound. EXTREMITIES: Normal range of motion, no clubbing or edema. Neurovascularly intact NEUROLOGICAL: Alert and oriented x4.Normal gait and speech. SKIN: Warm, dry, no laceration, no petechiae, no rashes or lesions. Course Orders Ordered: ED Orders 01/15/22 11:17 Chest [XR chest 2V] Stat Vital Signs Vital signs: Vital Signs - 8 hr 01/15/22 12:03 01/15/22 12:03 Pulse Rate 48 L Blood Pressure 132/88 Pulse Oximetry 96 MDM - Recheck/Abnormal Lab/Rx Lab Data Result diagrams: 01/15/22 09:40 01/15/22 09:40 Labs: Lab Results 01/15/22 01/15/22 01/15/22 Range/Units 09:40 09:40 09:40 WBC 7.6 (4.5-11.0) X10^3/uL RBC 4.48 L (4.5-5.9) X10^6/uL Hgb 14.8 (13.5-17.5) g/dL Hct 42.9 (41-53) % MCV 95.7 (80-100) fL MCH 33.0 (26-34) PG MCHC 34.5 (30-36) % RDW 13.9 (11.6-14.8) % Plt Count 169 (150-400) X10^3/uL Neut % (Auto) 69.6 (50-75) % Lymph % (Auto) 20.2 L (25-40) % [place] % (Auto) 7.5 (3-14) % Eos % (Auto) 1.9 L (2-4) % Baso % (Auto) 0.8 (0-2) % Neut # (Auto) 5300 (4946-8962) /uL Lymph # (Auto) 1500 (1298-4194) /uL [place] # (Auto) 600 (0-900) /uL Eos # (Auto) 100 (0-450) /uL Baso # (Auto) 100 (0-100) /uL Sodium 136 L (137-145) mmol/L Potassium 4.3 (3.4-5.1) mmol/L Chloride 100 (98-107) mmol/L Carbon Dioxide 30 (22-32) mmol/L BUN 13 (9-20) mg/dL Creatinine 0.82 (0.66-1.25) mg/dL Estimated GFR > 60 (>60) mL/min BUN/Creatinine Ratio 15.9 (6-22) Glucose 91 (80-110) mg/dL Lactate 0.9 (0.7-2.1) mmol/L Calcium 8.9 (8.4-10.2) mg/dL Total Bilirubin 0.4 (0.2-1.3) mg/dL AST 39 (17-59) IU/L ALT 30 (<50) IU/L Alkaline Phosphatase 56 (38-126) U/L Total Protein 6.6 (6.3-8.2) g/dL Albumin 3.9 (3.5-5.0) g/dL Globulin 2.7 (1.7-4.1) g/dL Albumin/Globulin Ratio 1.4 (1.0-2.8) Procalcitonin (<0.5) ng/mL 01/15/22 Range/Units 09:40 WBC (4.5-11.0) X10^3/uL RBC (4.5-5.9) X10^6/uL Hgb (13.5-17.5) g/dL Hct (41-53) % MCV (80-100) fL MCH (26-34) PG MCHC (30-36) % RDW (11.6-14.8) % Plt Count (150-400) X10^3/uL Neut % (Auto) (50-75) % Lymph % (Auto) (25-40) % [place] % (Auto) (3-14) % Eos % (Auto) (2-4) % Baso % (Auto) (0-2) % Neut # (Auto) (5244-8747) /uL Lymph # (Auto) (7966-2320) /uL [place] # (Auto) (0-900) /uL Eos # (Auto) (0-450) /uL Baso # (Auto) (0-100) /uL Sodium (137-145) mmol/L Potassium (3.4-5.1) mmol/L Chloride (98-107) mmol/L Carbon Dioxide (22-32) mmol/L BUN (9-20) mg/dL Creatinine (0.66-1.25) mg/dL Estimated GFR (>60) mL/min BUN/Creatinine Ratio (6-22) Glucose (80-110) mg/dL Lactate (0.7-2.1) mmol/L Calcium (8.4-10.2) mg/dL Total Bilirubin (0.2-1.3) mg/dL AST (17-59) IU/L ALT (<50) IU/L Alkaline Phosphatase (38-126) U/L Total Protein (6.3-8.2) g/dL Albumin (3.5-5.0) g/dL Globulin (1.7-4.1) g/dL Albumin/Globulin Ratio (1.0-2.8) Procalcitonin < 0.03 (<0.5) ng/mL Urine Dip Bedside Urine Glucose Negative Bedside Urine Bilirubin - Negative Bedside Urine Ketone - Negative Urine Specific [place] 1.010 Bedside Urine Occult Blood - Negative Bedside Urine pH 7.0 Bedside Urine Protein - Negative Bedside Urine Urobilinogen - Negative Bedside Urine Nitrite - Negative Bedside Urine Leukocytes - Negative Esterase MDM Narrative Medical decision making narrative: Patient has absolutely no complaints. Except that he is mildly weak. No fever no chills she has no leukocytosis no elevated procalcitonin no lactate. Urinalysis is negative repeat chest x-ray again negative today. It is a bit odd that he has had 2 contaminated blood cultures in 1 week from 2 different places. Due to this I will empirically put him on antibiotic Bactrim based on blood culture from [facility]. At this time patient overall appears very well. Discussed with him warning signs. I expect culture and sensitivity from his 1st culture 2 days ago I requested it to be sent for culture and sensitivity. Discharge Plan Departure Patient Disposition: Home Clinical Impression: Weakness, Bacteremia Instructions: DI for Muscle Weakness Activity Restrictions/Additional Instructions: *You have been diagnosed with possible positive blood culture *What to do: *Continue to take medications as directed Keflex 500 mg twice a day for 7 days--> [place] [facility] *Follow up with your primary care provider in 2-3 days or call [phone] *Return to ER if you should have fever chills weakness chest pain nausea vomiting or any new, worsening or concerning symptoms Prescriptions: New cephalexin 500 mg capsule 500 mg PO BID 7 Days Qty: 14 0RF No Action aspirin 81 MG tablet,delayed release (DR/EC) 81 mg PO QDAY Qty: 0 cyclobenzaprine 10 MG tablet 10 mg PO HS Qty: 0 lisinopril [Zestril] 40 MG tablet 40 mg PO QDAY Qty: 0 CA PANTOTHENATE/FOLIC ACID/VIT (MULTIVITAMIN) 1 tab PO QDAY Qty: 0 metoprolol succinate [Toprol XL] 200 MG tablet extended release 24 hr 200 mg PO QDAY Qty: 0 simvastatin 40 MG tablet 40 mg PO HS Qty: 0 ezetimibe [Zetia] 10 MG tablet 10 mg PO QDAY Qty: 0 Referrals: Mily Padilla DO [Primary Care Provider] - Visit Report Forms: Patient Portal/API
[2022-01-15 11:14] LABS: Procalcitonin < 0.03 ng/mL (<0.5)
--- NOTE | 2022-01-15 11:17 | DI.RAD.S_ITS ---
PROCEDURE: XR CHEST 2V INDICATIONS: ?right pneumo from 01/10 TECHNIQUE: 2 views of the chest were acquired. COMPARISON: [facility], CR, XR CHEST 1 VIEW, 01/10/2022, 9:17. [facility], CR, XR CHEST 1 VIEW, 01/10/2022, 13:14. [facility], CR, XR CHEST 1V, 01/13/2022, 9:15. FINDINGS: Surgical changes and devices: A cardiac pacemaker/AICD is seen with pulse generator in the left chest. Lungs and pleura: Lungs are clear. No pleural effusions or pneumothorax. Mediastinum: Mediastinal contours are normal. Heart size is normal. Bones and chest wall: No suspicious bony abnormalities. Soft tissues appear unremarkable. IMPRESSION: No acute cardiopulmonary process identified. No pneumothorax. Approved by: Wayne Jackson M.D. on 01/15/2022 at 12:37
[2022-01-15 12:03] VITALS: BP 132/88; PULSE 48; O2SAT 96
== END 2022-01-15 12:28 | disposition home or self-care (01) ==
PROVIDERS: Emergency Provider Emergency Medicine; PCP Family Medicine
DX: R53.1 Weakness (principal); R78.81 Bacteremia
CPT/HCPCS: 36415; 71046; 80053; 81003; 83605; 84145; 85025; 87040; 99284